=== PATIENT | male | born 1970 | race Caucasian/White ===

== ENCOUNTER 2021-10-21 08:35 | Emergency (ER) | payer OTHER ==
[~2021-10-21] VITALS: Ht 165.1 cm; Wt 7.7 kg
[2021-10-21 08:40] VITALS: BP_SYST 154
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
--- NOTE | 2021-10-21 08:54 | NUR ---
at pt bedside
--- NOTE | 2021-10-21 08:54 | NUR ---
Patient taken to CT by Tech
--- NOTE | 2021-10-21 09:15 | NUR ---
Patient returned from CT, C-spine remains in place
--- NOTE | 2021-10-21 09:25 | NUR ---
Lab at bedside preforming draws
--- NOTE | 2021-10-21 09:26 | NUR ---
MD spoke with Trauma MD at [facility] discussing plan of care.
[2021-10-21] MEDS ORDERED: MORPHINE 4 MG INJ. 4 MG/ML VIAL IM ONE (09:30)
--- NOTE | 2021-10-21 09:34 | NUR ---
Patient being prepared for transfer to [place] for higher level of care.
[2021-10-21] MEDS ORDERED: IOHEXOL 350 mgI/mL, 150 ML INFUS..BTL IV ONE (09:53)
[2021-10-21 10:06] LABS: BASOPHILS % (AUTO) 0.2 % (0.0-2.0); EOSINOPHILS # (AUTO) 0.1 K/uL (0.0-0.4); EOSINOPHILS % (AUTO) 0.9 % (0.0-4.0); HEMATOCRIT 43.9 % (36-54); HEMOGLOBIN 14.5 g/dL (14.0-18.0); LYMPHOCYTES % (AUTO) 11.2 % (20.5-51.5); MEAN CORPUSCULAR HEMOGLOBIN 29 pg (27-31); MEAN CORPUSCULAR HGB CONC 33 % (32-36); MEAN CORPUSCULAR VOLUME 88 fL (79.0-98.0); MONOCYTES # (AUTO) 0.5 K/uL (0.0-1.0); MONOCYTES % (AUTO) 5.1 % (1.7-9.3); NEUTROPHILS # (AUTO) 7.5 K/uL (1.8-7.7); NEUTROPHILS % (AUTO) 82.6 % (40.0-70.0); PLATELET COUNT (AUTO) 252 K/uL (130-430); RED CELL DISTRIBUTION WIDTH 14.2 % (9.0-15.0); WHITE BLOOD COUNT (AUTO) 9.1 K/uL (4.8-10.8)
--- NOTE | 2021-10-21 10:16 | NUR ---
admin analgesic 4mg morphine via IVP per Dr Baker order. Aministered in 4 min, patient stable no adverse reaction/no SOB, utercaria. patient stable no acute changes in vs rails up and bed lowered and locked
--- NOTE | 2021-10-21 10:20 | NUR ---
18G PIV placed to left AC, patient tolerated well. Labs drawn and sent.
[2021-10-21 10:22] LABS: INR 0.9 (0.80-1.20); PROTHROMBIN TIME 9.9 SECS (9.5-12.5)
[2021-10-21] MEDS: MORPHINE 4 MG INJ. 4 MG/ML VIAL IVP ONE (10:22)
[2021-10-21 11:01] LABS: BILIRUBIN,URINE NEGATIVE (NEGATIVE); CLARITY/URINE CLEAR (CLEAR); COLOR,URINE YELLOW (YELLOW); GLUCOSE,URINE NEGATIVE (NEGATIVE); KETONES,URINE NEGATIVE (NEGATIVE); LEUKOCYTE ESTERASE ,URINE NEGATIVE (NEGATIVE); NITRITE, URINE NEGATIVE (NEGATIVE); PH,URINE 7.5 (5.0-8.0); PROTEIN URINE NEGATIVE (NEGATIVE); UROBILINOGEN,URINE 0.2 (0.2-1.0)
[2021-10-21 11:04] LABS: BLOOD, URINE TRACE (NEGATIVE)
[2021-10-21 11:11] LABS: BACTERIA,URINE FEW /HPF (None Seen); MUCUS,URINE 1+ /LPF (None Seen); WBC,URINE 0-3 /HPF (0-3)
[2021-10-21 11:12] LABS: ANION GAP 8 (5-15); CALCIUM 8.6 mg/dL (8.4-11.0); CHLORIDE 100 mmol/L (98-107); CREATININE 0.83 mg/dL (0.55-1.30); GLUCOSE 170 mg/dL (70-99); POTASSIUM 3.9 mmol/L (3.5-5.1); SODIUM SERUM 134 mmol/L (136-145); UREA NITROGEN, BLOOD 14 mg/dL (8-21)
[2021-10-21 11:20] LABS: GFR AFRICAN AMERICAN 126 mL/min (>90)
--- NOTE | 2021-10-21 11:26 | NUR ---
Patient taken to CT for second scan
--- NOTE | 2021-10-21 11:30 | NUR ---
Spoke to son over phone ([facility]) per the son, "I told my dad not to give any information to you guys". Educated son over phone of purpose for health insurance needs for transfer to [place], son stated, " I am calling a senior premium auditor". Charge nurse informed of conversation, immigration case manager also aware.
[2021-10-21 11:34] LABS: BARBITURATE, URINE NEGATIVE (NEG <=200); BENZODIAZEPINE, URINE NEGATIVE (NEG <=150); CANNABINOID, URINE NEGATIVE (NEG <=50); COCAINE, URINE NEGATIVE (NEG <=150); METHAMPHETAMINES SCREEN,URINE NEGATIVE (NEG <=500); OPIATE, URINE NEGATIVE (NEG <=100); PHENCYCLIDINE SCREEN,URINE NEGATIVE (NEG <=25); UR TRICYCLIC ANTIDEPRESSANTS NEGATIVE (NEG <=300); URINE AMPHETAMINE NEGATIVE (NEG <=500); URINE METHADONE NEGATIVE (NEG <=200); URINE OXYCODONE SCREEN NEGATIVE (NEG <=100); URINE PROPOXYPHENE SCREEN NEGATIVE (NEG <=300)
[2021-10-21 11:35] LABS: ALANINE AMINOTRANSFERASE 49 U/L (12-78); ALBUMIN 3.9 g/dL (3.4-4.8); ALCOHOL, BLOOD < 3 mg/dL (<10); ASPARTATE AMINOTRANSFERASE 43 U/L (10-37); TOTAL BILIRUBIN 0.9 mg/dL (0.0-1.0)
--- NOTE | 2021-10-21 11:45 | NUR ---
Patient remains in C-Spine precautions, vitals stable.
[2021-10-21 12:07] LABS: HEMATOCRIT 41.1 % (36-54); HEMOGLOBIN 13.3 g/dL (14.0-18.0); MEAN CORPUSCULAR HEMOGLOBIN 29 pg (27-31); MEAN CORPUSCULAR HGB CONC 33 % (32-36); MEAN CORPUSCULAR VOLUME 88 fL (79.0-98.0); PLATELET COUNT (AUTO) 228 K/uL (130-430); RED BLOOD CELL COUNT(AUTO) 4.65 MIL/uL (4.2-6.2); RED CELL DISTRIBUTION WIDTH 14.2 % (9.0-15.0); WHITE BLOOD COUNT (AUTO) 15.1 K/uL (4.8-10.8)
--- NOTE | 2021-10-21 12:28 | NUR ---
assessed patient. patient is resting comfortably, bed rails up, bed locked and lowered. no acute changes in patients vs. [id number], o2sat 96 rr 23 pb 130/83 Addendum: 10/21/21 at 1231 by EL (patient remains in c-spine collar)
--- NOTE | 2021-10-21 13:17 | NUR ---
Sister at bedside, case packer called and also at bedside discussing plan of care with family.
--- NOTE | 2021-10-21 13:40 | NUR ---
Called [facility], Charge nurse not available for report was transfered to ED MD, phone was disconnected. Attempted to call back ED, was placed on hold. No answer from charge nurse.
--- NOTE | 2021-10-21 13:42 | NUR ---
2nd Attempt made to ED at [place], unable to reach RN for report, no answer from Charge Nurse. Number called [phone].
--- NOTE | 2021-10-21 13:51 | NUR ---
[facility] at bedside, report given to CCT MORA Earl
--- NOTE | 2021-10-21 14:02 | NUR ---
3rd attempt made to call [facility] for report
--- NOTE | 2021-10-21 14:05 | NUR ---
4th attempt calling [facility] for report, spoke with MORA Olson. Report given
[2021-10-21 18:54] VITALS: BP_SYST 136
== END 2021-10-21 18:54 | disposition short-term general hospital (02) ==
LOC: SED 08:35
DX: S12.9XXA Fracture of neck, unspecified, initial encounter (principal); S23.3XXA Sprain of ligaments of thoracic spine, initial encounter; V49.49XA Driver injured in collision with other motor vehicles in traffic accident, initial encounter; Y93.89 Activity, other specified; Y92.89 Other specified places as the place of occurrence of the external cause; Y99.8 Other external cause status
CPT/HCPCS: 36415; 70450; 70498; 71275; 72125; 72128; 72191; 74175; 76376; 80053; 80307; 81000; 83051; 85014; 85025; 85048; 85049; 85610; 85730; 86886; 86900; 86901; 93005; 96374; 99285; G0482; J2270; Q9967